=== PATIENT | female | born 1960 | race African-American/Black ===

== ENCOUNTER 2018-02-11 22:00 | Inpatient (IN) | payer MEDICAID, SELFPAY ==
[2018-02-11 22:01] VITALS: BP 125/90; PULSE 77; RESP 18; TEMP 36.6; O2SAT 99; BMI 21.7
--- NOTE | 2018-02-11 22:54 | EKG12_ITS ---
Test Reason : ABD PAIN Blood Pressure : / mmHG Vent. Rate : 069 BPM Atrial Rate : 069 BPM P-R Int : 138 ms QRS Dur : 076 ms QT Int : 502 ms P-R-T Axes : 085 054 075 degrees QTc Int : 537 ms Normal sinus rhythm Prolonged QT Abnormal ECG Confirmed by KARINA REYES, HENRRY ([id number]), business editor GEO OLIVO ([id number] on 02/13/2018 1:58:09 PM Referred By: RAMON Confirmed By:HENRRY COLLINS MD
--- NOTE | 2018-02-11 22:54 | RAD_ITS ---
STUDY: X-RAY CHEST REASON FOR EXAM: Female, 57 years old. Short of breath. Abdominal pain. TECHNIQUE: Portable upright. COMPARISON: None. FINDINGS: The lungs are clear and expanded. There is no demonstrated pleural abnormality. Normal size heart. Normal mediastinum and eliecer. Normal visualized pulmonary arteries. Normal visualized aortic arch and descending thoracic aorta. Normal visualized thoracic spine. Normal visualized ribs, clavicles, and shoulders. There is mild free air beneath the right hemidiaphragm. RAD/Chest 1 View (Portable) IMPRESSION: 1. Pneumoperitoneum. 2. Unremarkable chest. N.B. : The above information has been verbally conveyed by Lidia Gautam MD to Akbar He MD, on 02/11/2018 23:30:19 (ET). Electronically Signed: Lidia Gautam MD at 23:26 EDT Tel , Service support ,
[2018-02-11 23:33] LABS: Absolute Lymphocyte Count 0.67 X10^3/ul (0.83-4.51); Absolute Neutrophil Count 5.5 X10^3/uL (2.0-7.7); Basophil# 0.01 X10^3/uL; Basophil% 0.1 % (0-1); Hematocrit 43.5 % (37-47); Hemoglobin 15.2 g/dl (12.0-15.0); Lymphocyte # 0.67 X10^3/ul (4.0); Lymphocyte % 9.9 % (19-41); Mean Corp Hgb Conc 34.9 g/gl (32-36); Mean Corpuscular Volume 91.6 fL (81-99); Mean Platelet Vol. 11.1 fl (6.2-12.0); Monocyte# 0.53 X10^3/uL; Monocyte% 7.8 % (0-10); Neutrophil # 5.53 X10^3/uL (2.7-7.7); Neutrophil % 81.9 % (47-70); Platelet Count 264 K/mm3 (150-450); RBC Distribution Width CV 13.9 % (11.6-14.6); RBC Distribution Width SD 45.7 fl (35.1-43.9); Red Blood Count 4.75 M/mm3 (4.2-5.4); White Blood Count 6.8 K/mm3 (4.4-11.0)
--- NOTE | 2018-02-11 23:33 | CT_ITS ---
STUDY: CT ABDOMEN AND PELVIS WITHOUT CONTRAST REASON FOR EXAM: Female, 57 years old. Abdominal pain RADIATION DOSAGE (If Supplied By Facility): CTDIvol = ( 6.05 ) mGy, DLP = ( 278.03 ) mGycm TECHNIQUE: Transaxial images were obtained from the dome of the diaphragm to the symphysis pubis without oral contrast, and without intravenous contrast. Sagittal and coronal images were reconstructed. Individualized dose optimization techniques were used for this CT. COMPARISON: None. FINDINGS: The lung bases are clear. The liver is normal. No dilated intrahepatic biliary radicles. The gallbladder is normal with no calcifications within it. There is no pericholecystic fluid collection or streakiness The spleen is normal. The pancreas is normal. Both adrenals are normal. The kidneys are normal with no masses, calculi or hydronephrosis The stomach is normal. There is no bowel distention, acute appendicitis or diverticulitis. No constricting lesions are seen in large bowel. The abdominal wall is intact with no hernias. A small amount of free fluid is seen around the liver. There is free intraperitoneal air located around the liver, in the gallbladder fossa and in Morison's pouch. The vascular structures in the retroperitoneum are normal. There is no retrocrural, retroperitoneal or mesenteric adenopathy. The bones and joints are normal. The urinary bladder is normal.--The uterus is normal. There is a large amount of free fluid in the cul-de-sac. There is no inguinal or pelvic adenopathy. There is no inguinal hernia. . CT/Abdomen/Pelvis without Cont IMPRESSION: Free intraperitoneal air probably secondary to gastric perforation with a large amount of free fluid in the cul-de-sac. A small amount of free fluid is seen around the liver. The perforation may also originate from the hepatic flexure. N.B. : The above information has been verbally conveyed by Jan Lentz MD to Akbar He MD, on 02/12/2018 02:35:30 (ET). Electronically Signed: Jan Lentz MD at 1:28 EDT Tel , Service support ,
[2018-02-11] MEDS: proMETHazine 25 MG/ML Syringe 12.5 MG IV (23:35)
[2018-02-11] MEDS: 0.9% Normal Saline 1,000 ML 999 ML IV (23:35)
[2018-02-11 23:38] LABS: POSITIVE COUNT NO; POSITIVE DIFFERENTIAL NO; POSITIVE MORPHOLOGY NO
[2018-02-11] MEDS: Morphine 4 MG/ML Syringe IV (23:39)
[2018-02-12] VITALS (20 sets, daily range): BP systolic 129–174; BP diastolic 69–97; PULSE 52–91; RESP 16–18; TEMP 36.1–37.2; O2SAT 93–100; BMI 18.4
[2018-02-12 00:11] LABS: ALB/GLOB Ratio 1.1 RATIO (0.9-2.4); AST(SGOT) 27 U/L (15-37); Alanine Aminotransfer ALT/SGPT 39 U/L (13-56); Albumin, Serum 4.2 g/dL (3.2-5.0); Alkaline Phosphatase 55 U/L (45-117); Anion Gap 12 (5-15); BUN 21 mg/dL (7-18); BUN/Creat Ratio 16.5 RATIO (10-20); Calcium,Total 9.3 mg/dL (8.5-10.1); Chloride 102 mmol/L (98-107); Creatinine, Serum 1.27 mg/dL (0.55-1.02); EST Glomerular Filtration Rate 46 mL/min (>60); Est Glom Filt Rate - Afr Amer 56 mL/min (>60); Estimated Creatinine Clearance 37.32 ml/min; Globulin 3.8 g/dL (2.2-4.2); Glucose 98 mg/dL (74-106); Lipase 187 U/L (73-393); Potassium 3.7 mmol/L (3.5-5.1); Sodium Level 135 mmol/L (136-145)
[2018-02-12] MEDS: HYDROmorphone 1 MG/ML Syringe IV ×3 (00:27→21:11)
[2018-02-12 00:57] LABS: Bacteria 0 SEEN /hpf (None Seen); Red Blood Cells-Urine 0 SEEN /hpf (0-5)
[2018-02-12 00:59] LABS: Color, Urine Yellow (Yellow); Glucose, Dipstick Normal (Normal); Ketone-Dipstick 50 mg/dl (Negative); Leukocyte Esterase-Dipstick 100 /ul (Negative); Nitrite-Dipstick Negative (Negative); Occult Blood-Urine 25 /ul (Negative); Protein-Dipstick 100 mg/dl (Negative); Specific Gravity, Urine 1.025 (1.002-1.030); Urine Clarity Sl. Cloudy (Clear); Urine Urobilinogen Normal (Normal)
[2018-02-12 01:00] LABS: Urine Bilirubin Dipstick 1 mg/dL (Negative)
[2018-02-12 01:03] LABS: Hyaline Cast 25-50 SEEN /lpf (0-5); Squamous Epithelial Cells - UA 10-25 SEEN /hpf (5-10)
[2018-02-12 01:04] LABS: Mucous, Urine 2+ /hpf (<or=2+); White Blood Cells 5-10 SEEN /hpf (0-5)
--- NOTE | 2018-02-12 01:14 | ED.RN ---
notified Dr. He of lactic 3.0
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
[2018-02-12] MEDS: 0.9% Normal Saline 1,000 ML 999 ML IV (02:41)
[2018-02-12 02:43] LABS: Amphetamine Urine VISTA NEGATIVE (<1000 ng/mL); Barbiturate Urine VISTA NEGATIVE (< 200 ng/mL); Benzodiazepine Urine VISTA NEGATIVE (< 200 ng/mL); Cocaine Urine VISTA NEGATIVE (< 300 ng/mL); Ecstacy Urine VISTA NEGATIVE (< 500 ng/mL); Methadone Urine VISTA NEGATIVE (< 300 ng/mL); PCP Urine VISTA NEGATIVE (< 25 ng/mL); THC Urine VISTA POSITIVE (< 50 ng/mL); Vista UDS pH Range 6
[2018-02-12] MEDS: 0.9% Normal Saline 1,000 ML 125 ML IV ×2 (03:43→10:57)
[2018-02-12 04:45] LABS: Reflex Lactate? Y
--- NOTE | 2018-02-12 05:02 | RAD_ITS ---
STUDY: GASTROGRAFIN UPPER GI SERIES. REASON FOR EXAM: Female, 57 years old. History of of free intra-abdominal air. FLUOROSCOPY TIME (if supplied): (2:51) minutes/seconds. 26 spot images were obtained. TECHNIQUE: A violin mechanic film was obtained. Following this, the patient ingested Gastrografin. Imaging was performed. The study is limited. The patient would not ingest enough Gastrografin for the examination. COMPARISON: None. FINDINGS: The esophagus is unremarkable. There is gaseous distention of the stomach. There is diffuse narrowing and the mucosal thickening of the distal portion of the stomach and antrum. There is evidence of extraluminal extravasation of the Gastrografin in the region of the duodenal bulb. RAD/Upper GI w/BA Swallow IMPRESSION: Narrowing and edematous changes of the distal stomach and first portion of the duodenum. I suspect a leak in the region of the first portion of the duodenum. Electronically Signed: Herrera Donohue MD at 9:40 EDT Tel [phone], Service support ,
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
[2018-02-12 05:41] LABS: Absolute Lymphocyte Count 0.77 X10^3/ul (0.83-4.51); Absolute Neutrophil Count 4.9 X10^3/uL (2.0-7.7); Basophil# 0.01 X10^3/uL; Basophil% 0.2 % (0-1); Eosinophil# 0.03 X10^3/uL; Eosinophils% 0.5 % (0-5); Hematocrit 38.7 % (37-47); Hemoglobin 12.6 g/dl (12.0-15.0); Lymphocyte # 0.77 X10^3/ul (4.0); Mean Corp Hgb Conc 32.6 g/gl (32-36); Mean Corpuscular Volume 95.3 fL (81-99); Mean Platelet Vol. 11.3 fl (6.2-12.0); Monocyte# 0.26 X10^3/uL; Monocyte% 4.4 % (0-10); Neutrophil # 4.87 X10^3/uL (2.7-7.7); Neutrophil % 81.9 % (47-70); POSITIVE COUNT NO; POSITIVE DIFFERENTIAL NO; POSITIVE MORPHOLOGY NO; Platelet Count 207 K/mm3 (150-450); RBC Distribution Width CV 14.4 % (11.6-14.6); RBC Distribution Width SD 50.1 fl (35.1-43.9); Red Blood Count 4.06 M/mm3 (4.2-5.4); White Blood Count 5.9 K/mm3 (4.4-11.0)
[2018-02-12 06:00] LABS: Anion Gap 12 (5-15); BUN 20 mg/dL (7-18); BUN/Creat Ratio 20.8 RATIO (10-20); Calcium,Total 7.8 mg/dL (8.5-10.1); Chloride 112 mmol/L (98-107); Creatinine, Serum 0.96 mg/dL (0.55-1.02); EST Glomerular Filtration Rate 64 mL/min (>60); Est Glom Filt Rate - Afr Amer 77 mL/min (>60); Estimated Creatinine Clearance 47.21 ml/min; Glucose 104 mg/dL (74-106); Potassium 3.7 mmol/L (3.5-5.1); Sodium Level 139 mmol/L (136-145)
--- NOTE | 2018-02-12 11:05 | CASEMGMT ---
Face to Face with patient for initial transition planning/care coordination assessment. YAIMA COOL introduced self and role at [facility], pt voices understanding and consents to assessment at this time. Pt is sitting up in bed in no distress at this time. Pt is A/O x4 at this time and answers all questions appropriately at this time. Care providers, pharmacy, and demographics verified. See attached link. Pt provided with PCP list at this time and information regarding [facility] van service at this time, voices understanding. Pt also provided with Advanced directive info as well as Social Service pamphlet at this time, voices understanding. Pt declines to complete AD info at this time but is aware that [facility] provides that service, voices understanding. Pt voices no further concerns/needs at this time. Advised pt to ask for CM if any further questions/concerns/needs arise, voices understanding. PLAN[place] YAIMA COOL
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
[2018-02-12] MEDS: Bupivacaine Mpf 0.5% 30 ML VIAL (15:46)
--- NOTE | 2018-02-12 16:00 | OP.PCM_ITS ---
Problem List (1) Duodenal ulcer perforation Status: Acute Report of Operation Date of Procedure: 02/12/18 Pre-Operative Diagnosis: Duodenal ulcer perforation Post-Operative Diagnosis: Same plus umbilical hernia Surgery/Procedure Performed:: Laparoscopic exploration with irrigation. Laparoscopic repair of perforated duodenal ulcer with Chris patch. Umbilical herniorrhaphy Description of Surgical Findings:: Timeout and informed consent was obtained. 57-year-old female was taken out from placement table underwent general ventricular-based anesthesia. NG tube was placed. Cefotetan 2 g are given intravenously. The abdomen sterilely prepped and draped. 0.5% Marcaine was used as local anesthetic. At the procedure total 30 cc was used. Skin sites were pre-anesthetized. A vertical infraumbilical incision was created. Holding sutures of 0 Vicryl placed. Small umbilical hernia was identified and upon opening that hernia sac intraperitoneal air escape. There is no odor. Tunneling trocar was inserted. Abdomen is inspected there was bilious material this was aspirated and sent for culture. There were adhesions mostly involving the anterior surface of the ascending col on and transverse colon as well as the anterior wall of the stomach and duodenum. There is standing involving the surfaces of the liver. Blunt dissection was used to explore this area and irrigated and aspirated free. Upon so doing a perforated duodenal ulcer was encountered. I utilized a number 2V lock suture a polyglactin suture and in a running technique approximated the ulcer. I did not take of the rim of the ulcer cavity appeared to be clean and not malignant and as this was a laparoscopic approach I wanted to assure a good chance at closure. I then used a portion of the gastrocolic omentum place that up over the repaired area and I secured that in place with another 20V lock. I felt that I had good approximation of the omental patch overlying the repair. There is been very minimal blood loss. I copiously irrigated the abdomen. I then placed a 15 round BETZY drain beneath the left lobe of the liver up in the left upper quadrant through the right subhepatic space. Secured that to the skin with interrupted 3-0 nylon the abdomen was allowed to deflate CO2. The umbilical hernia site was closed with simple and figure 8 sutures of 0 Nurolon. Skin edges were extended up to 4 Monocryl sub-dermal stitches. Steri-Strips Telfa and OpSite dressings applied. Sponge and instrument and needle counts were reported the surgical correct. Blood loss minimal. Specimens simply include peritoneal flow fluid for culture. Drains a 15 round BETZY drain to the upper abdomen. Blood loss minimal. Rivas Jade M.D., F.A.C.S. Type of Anesthesia:: General Anesthesiologist: Michael Culp
--- NOTE | 2018-02-12 20:39 | NURSING ---
Pt ambulated to chair. Pt tolerated very well, stating she feels great.
[2018-02-13] VITALS (12 sets, daily range): BP systolic 134–169; BP diastolic 71–81; PULSE 70–92; RESP 12–16; TEMP 36.4–37.2; O2SAT 97–100
[2018-02-13] MEDS: HYDROmorphone 1 MG/ML Syringe IV ×4 (01:42→20:18)
[2018-02-13] MEDS: 0.9% NaCl Peripheral Flush Adult/Peds IV ×4 (01:43→20:18)
--- NOTE | 2018-02-13 05:16 | PN.SURG_ITS ---
Patient Problems: Active and Suspected Problems Adverse effect of ibuprofen (Acute) RAFA (acute kidney injury) (Acute) Duodenal ulcer perforation (Acute) Subjective: Pt feels much better than yesterday - Physical Exam Lungs: Clear to auscultation Abdomen: Soft, Non Tender, - - occ bs NGT bilious approx 400cc Vital Signs Temp Pulse Resp BP Pulse Ox 97.7 F L 75 16 135/80 H 97 02/13/18 01:32 02/13/18 03:02 02/13/18 01:32 02/13/18 01:32 02/13/18 01:32 Oxygen Delivery Method Room Air Weight: 100 lb 12.02 oz Body Mass Index (BMI) 18.4 Intake and Output for Last 24 Hours 02/11/18 02/12/18 02/13/18 23:59 23:59 23:59 Intake Total 3692 / 3692 Output Total 110 / 110 60 / 60 Balance 3582 / 3582 -60 / -60 Laboratory Tests Past 24 Hrs 02/12/18 02/12/18 02/12/18 05:08 05:08 05:08 WBC 5.9 RBC 4.06 L Hgb 12.6 Hct 38.7 MCV 95.3 MCH 31.0 MCHC 32.6 RDW 14.4 RDW Differential 50.1 H Plt Count 207 MPV 11.3 Immature Gran % (Auto) 0.000 Neut % (Auto) 81.9 H Lymph % (Auto) 13.0 L [place] % (Auto) 4.4 Eos % (Auto) 0.5 Baso % (Auto) 0.2 Absolute Neuts (auto) 4.9 Absolute Lymphs (auto) 0.77 L Total Counted Not Reportable Sodium 139 Potassium 3.7 Chloride 112 H Carbon Dioxide 15.0 L Anion Gap 12 BUN 20 H Creatinine 0.96 Estim Creat Clear Calc 47.21 Est GFR (MDRD) Af Amer 77 Est GFR (MDRD) Non-Af 64 BUN/Creatinine Ratio 20.8 H Glucose 104 Lactic Acid 1.0 Calcium 7.8 L Blood Type Antibody Screen 02/12/18 11:45 WBC RBC Hgb Hct MCV MCH MCHC RDW RDW Differential Plt Count MPV Immature Gran % (Auto) Neut % (Auto) Lymph % (Auto) [place] % (Auto) Eos % (Auto) Baso % (Auto) Absolute Neuts (auto) Absolute Lymphs (auto) Total Counted Sodium Potassium Chloride Carbon Dioxide Anion Gap BUN Creatinine Estim Creat Clear Calc Est GFR (MDRD) Af Amer Est GFR (MDRD) Non-Af BUN/Creatinine Ratio Glucose Lactic Acid Calcium Blood Type O POSITIVE Antibody Screen NEGATIVE Medical Necessity - Tobacco Use Smoking Status: Current every day smoker Tobacco Use: Cigarettes Assessment/Plan All Active Problems Adverse effect of ibuprofen (Acute) RAFA (acute kidney injury) (Acute) Duodenal ulcer perforation (Acute) BETZY sersosanguinous, quite unremarkable NGT bilious Will re assess later today for possible ngt removal Good progress
[2018-02-13 05:40] LABS: Absolute Lymphocyte Count 0.78 X10^3/ul (0.83-4.51); Absolute Neutrophil Count 7.6 X10^3/uL (2.0-7.7); Basophil# 0.01 X10^3/uL; Basophil% 0.1 % (0-1); Hematocrit 34.7 % (37-47); Hemoglobin 11.6 g/dl (12.0-15.0); Lymphocyte # 0.78 X10^3/ul (4.0); Lymphocyte % 8.7 % (19-41); Mean Corp Hgb Conc 33.4 g/gl (32-36); Mean Corpuscular Hgb 30.9 pg (27.0-32.0); Mean Corpuscular Volume 92.5 fL (81-99); Mean Platelet Vol. 10.9 fl (6.2-12.0); Monocyte# 0.46 X10^3/uL; Monocyte% 5.1 % (0-10); Neutrophil # 7.62 X10^3/uL (2.7-7.7); Neutrophil % 85.2 % (47-70); Platelet Count 197 K/mm3 (150-450); RBC Distribution Width CV 14.6 % (11.6-14.6); RBC Distribution Width SD 49.4 fl (35.1-43.9); Red Blood Count 3.75 M/mm3 (4.2-5.4)
[2018-02-13 05:41] LABS: Differential Indicated SCAN CRITERIA MET; POSITIVE COUNT NO; POSITIVE DIFFERENTIAL NO; POSITIVE MORPHOLOGY YES
[2018-02-13 06:00] LABS: Anion Gap 10 (5-15); BUN 26 mg/dL (7-18); BUN/Creat Ratio 17.3 RATIO (10-20); Calcium,Total 7.8 mg/dL (8.5-10.1); Chloride 115 mmol/L (98-107); EST Glomerular Filtration Rate 38 mL/min (>60); Est Glom Filt Rate - Afr Amer 46 mL/min (>60); Estimated Creatinine Clearance 30.21 ml/min; Glucose 90 mg/dL (74-106); Sodium Level 142 mmol/L (136-145)
[2018-02-13] MEDS: Lactated Ringers 1,000 ML 50 ML IV (06:26)
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
[2018-02-13] MEDS: Lactated Ringers 1,000 ML 125 ML IV (16:47)
[2018-02-14] VITALS (16 sets, daily range): BP systolic 169–197; BP diastolic 84–101; PULSE 76–89; RESP 16–18; TEMP 36.6–37.5; O2SAT 98–100
[2018-02-14] MEDS: Lactated Ringers 1,000 ML 125 ML IV (01:03)
[2018-02-14] MEDS: 0.9% NaCl Peripheral Flush Adult/Peds IV ×3 (01:32→18:23)
[2018-02-14] MEDS: HYDROmorphone 1 MG/ML Syringe IV (01:32)
--- NOTE | 2018-02-14 05:50 | PCM.PN.SRG ---
Patient Problems: Active and Suspected Problems Adverse effect of ibuprofen (Acute) RAFA (acute kidney injury) (Acute) Duodenal ulcer perforation (Acute) - Physical Exam General: Alert, Oriented x3, Cooperative, No apparent distress Lungs: Clear to auscultation Abdomen: Bowel Sounds Present, Soft, Non Tender, - - vita serosanguinous Vital Signs Temp Pulse Resp BP Pulse Ox 99.0 F 86 16 169/84 H 98 02/14/18 02:31 02/14/18 03:00 02/14/18 02:31 02/14/18 02:31 02/14/18 02:31 Oxygen Delivery Method Room Air Weight: 100 lb 12.02 oz Body Mass Index (BMI) 18.4 Intake and Output for Last 24 Hours 02/12/18 02/13/18 02/14/18 23:59 23:59 23:59 Intake Total 3692 / 3692 2313.8 / 2313.8 821 / 821 Output Total 210 / 210 1395 / 1395 330 / 330 Balance 3482 / 3482 918.8 / 918.8 491 / 491 Microbiology Past 72 Hours 02/12/18 15:00 Gram Stain - Final Aspirate - Other Wound Culture - Preliminary No growth-Final to follow Laboratory Tests Past 24 Hrs 02/13/18 02/13/18 05:16 05:16 Total Counted Not Reportable Sodium 142 Potassium 4.0 Chloride 115 H Carbon Dioxide 17.0 L Anion Gap 10 BUN 26 H Creatinine 1.50 H Estim Creat Clear Calc 30.21 Est GFR (MDRD) Af Amer 46 L Est GFR (MDRD) Non-Af 38 L BUN/Creatinine Ratio 17.3 Glucose 90 Calcium 7.8 L Medical Necessity - Tobacco Use Smoking Status: Current every day smoker Tobacco Use: Cigarettes Assessment/Plan All Active Problems Adverse effect of ibuprofen (Acute) RAFA (acute kidney injury) (Acute) Duodenal ulcer perforation (Acute) NGT removed VITA removed Start clears Trim IVF but labs still pending Hopeful discharge tomorrow
--- NOTE | 2018-02-14 05:54 | DCINST_ITS ---
Discharge Diet: Light diet - advance as tolerated, - - No alcohol No aspirin or ibuprofen Discharge Activity: May Not Drive - May drive in 4 days, May Shower Lifting Restrictions: 10 pounds Call your doctor if your incision/area has: Continuous Slow Oozing, Sudden Increased Bleeding, Increased Pain/ Swelling, Increased Redness, Foul Smelling Discharge Call your doctor if you observe: Fever of 101 or Higher Suture Line Care: Avoid Pulling/Pushing, Avoid Pinching/Bending Additional Dressing/Incision Instructions:: You may remove the drain tape dressing Friday and shower. Remove the plastic dressings on Friday and then leave the steri strips for one week Allergies/Adverse Reactions: Allergies No Known Allergies Allergy (Verified 02/11/18 22:02) Medications to take at Discharge Aspirin [Aspirin, Baby] 81 mg PO DAILY@0800 02/12/18 Ibuprofen 800 mg PO BID 02/12/18 Primary Care Physician: Care Physician,No Primary [Primary Care Provider] - Test Results: Test results from this visit will be discussed in further detail at your follow- up appointment, if applicable. Please Follow Up With: Rivas Jade MD - [phone] When: Call to make an appointment to be seen in about 7 days.
[2018-02-14 06:35] LABS: Hematocrit 27.7 % (37-47); Hemoglobin 9.4 g/dl (12.0-15.0); Mean Corp Hgb Conc 33.9 g/gl (32-36); Mean Corpuscular Hgb 31.4 pg (27.0-32.0); Mean Corpuscular Volume 92.6 fL (81-99); Mean Platelet Vol. 12.2 fl (6.2-12.0); Platelet Count 184 K/mm3 (150-450); RBC Distribution Width CV 14.6 % (11.6-14.6); RBC Distribution Width SD 47.1 fl (35.1-43.9); Red Blood Count 2.99 M/mm3 (4.2-5.4)
[2018-02-14 06:42] LABS: Anion Gap 11 (5-15); BUN 19 mg/dL (7-18); BUN/Creat Ratio 20.5 RATIO (10-20); Calcium,Total 8.2 mg/dL (8.5-10.1); Chloride 112 mmol/L (98-107); Creatinine, Serum 0.93 mg/dL (0.55-1.02); EST Glomerular Filtration Rate 66 mL/min (>60); Est Glom Filt Rate - Afr Amer 80 mL/min (>60); Estimated Creatinine Clearance 48.73 ml/min; Glucose 61 mg/dL (74-106); Potassium 3.4 mmol/L (3.5-5.1); Sodium Level 142 mmol/L (136-145)
[2018-02-14 06:44] LABS: Scan Indicated on CBC? Y/N NO
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
[2018-02-14] MEDS: Lactated Ringers 1,000 ML 50 ML IV (12:46)
[2018-02-14] MEDS: amLODIPine 10 MG Tablet PO (12:52)
--- NOTE | 2018-02-14 15:18 | NURSING ---
Pt walked the whole unit w/standby assist.
[2018-02-14] MEDS: Piperacil/Tazobactam 3.375 GM/50 ML ML IV ×2 (18:23→23:20)
[2018-02-14] MEDS: Acetaminophen 325 MG Tablet PO (18:43)
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
[2018-02-14] MEDS: hydroCHLOROthiazide 25 MG Tablet PO (22:27)
[2018-02-15] VITALS (14 sets, daily range): BP systolic 151–185; BP diastolic 85–110; PULSE 70–93; RESP 16–18; TEMP 36.7–37.2; O2SAT 98–100
[2018-02-15] MEDS: 0.9% NaCl Peripheral Flush Adult/Peds IV ×3 (02:44→13:53)
--- NOTE | 2018-02-15 03:32 | NURSING ---
PATIENT IS GETTING AGITATED AND WANTS TO GO HOME, STATES, CAN'T STAY HERE ANOTHER NIGHT, IT HAS BEEN 5 DAYS, I'M DONE.
[2018-02-15] MEDS: Piperacil/Tazobactam 3.375 GM/50 ML ML IV ×3 (05:36→21:27)
[2018-02-15 06:01] LABS: Absolute Lymphocyte Count 0.91 X10^3/ul (0.83-4.51); Absolute Neutrophil Count 12.1 X10^3/uL (2.0-7.7); Basophil# 0.02 X10^3/uL; Basophil% 0.1 % (0-1); Eosinophil# 0.09 X10^3/uL; Eosinophils% 0.7 % (0-5); Hematocrit 34.3 % (37-47); Hemoglobin 11.8 g/dl (12.0-15.0); Lymphocyte # 0.91 X10^3/ul (4.0); Lymphocyte % 6.6 % (19-41); Mean Corp Hgb Conc 34.4 g/gl (32-36); Mean Corpuscular Hgb 30.9 pg (27.0-32.0); Mean Corpuscular Volume 89.8 fL (81-99); Mean Platelet Vol. 11.1 fl (6.2-12.0); Monocyte# 0.61 X10^3/uL; Monocyte% 4.4 % (0-10); Neutrophil # 12.14 X10^3/uL (2.7-7.7); Neutrophil % 87.8 % (47-70); Platelet Count 235 K/mm3 (150-450); RBC Distribution Width CV 14.4 % (11.6-14.6); RBC Distribution Width SD 45.9 fl (35.1-43.9); Red Blood Count 3.82 M/mm3 (4.2-5.4); White Blood Count 13.8 K/mm3 (4.4-11.0)
[2018-02-15 06:07] LABS: POSITIVE COUNT NO; POSITIVE DIFFERENTIAL NO; POSITIVE MORPHOLOGY NO
[2018-02-15 06:08] LABS: Anion Gap 14 (5-15); BUN 9 mg/dL (7-18); BUN/Creat Ratio 13.4 RATIO (10-20); Chloride 102 mmol/L (98-107); Creatinine, Serum 0.67 mg/dL (0.55-1.02); EST Glomerular Filtration Rate 96 mL/min (>60); Est Glom Filt Rate - Afr Amer 116 mL/min (>60); Estimated Creatinine Clearance 67.64 ml/min; Glucose 92 mg/dL (74-106); Potassium 3.1 mmol/L (3.5-5.1); Sodium Level 138 mmol/L (136-145)
--- NOTE | 2018-02-15 07:54 | NURSING ---
DR OCAMPO IN TO SEE PATIENT. PATIENT UPSET THAT SHE WILL NOT BE GOING HOME TODAY. DR OCAMPO EXPLAINING TO PATIENT WHY SHE CANNOT GO HOME TODAY. EMOTIONAL SUPPORT GIVEN
--- NOTE | 2018-02-15 08:07 | PN.SURG_ITS ---
Patient Problems: Active and Suspected Problems Adverse effect of ibuprofen (Acute) RAFA (acute kidney injury) (Acute) Duodenal ulcer perforation (Acute) Subjective: Patient tolerating full liquids, denies any abdominal pain, passing flatus, white blood cell count increased to 13.8 from 12 Zosyn started yesterday, patient upset about not being able to go home today - Physical Exam General: Alert, Oriented x3, Cooperative, No apparent distress HEENT: Atraumatic Lungs: Normal air movement Cardiovascular: Regular rate Abdomen: Soft, Non Tender, Passing Flatus, Distended - Mild to moderate, - - Incisions clean dry and intact dressed, previous BETZY site healing well Extremities: No clubbing, No cyanosis, No edema Vital Signs Temp Pulse Resp BP Pulse Ox 98.1 F 85 16 168/109 H 98 02/15/18 07:51 02/15/18 07:51 02/15/18 07:51 02/15/18 07:51 02/15/18 07:51 Oxygen Delivery Method Room Air Weight: 100 lb 12.02 oz Body Mass Index (BMI) 18.4 Intake and Output for Last 24 Hours 02/13/18 02/14/18 02/15/18 23:59 23:59 23:59 Intake Total 2313.8 / 2313.8 2846 / 2846 313 / 313 Output Total 1395 / 1395 630 / 630 Balance 918.8 / 918.8 2216 / 2216 313 / 313 Microbiology Past 72 Hours 02/12/18 15:00 Gram Stain - Final Aspirate - Other Wound Culture - Preliminary Alpha Hemolytic Streptococcus Anaerobic Culture - Preliminary Checking for anaerobes, further studies to follow. Laboratory Tests Past 24 Hrs 02/15/18 02/15/18 05:28 05:28 WBC 13.8 H RBC 3.82 L Hgb 11.8 L Hct 34.3 L MCV 89.8 MCH 30.9 MCHC 34.4 RDW 14.4 RDW Differential 45.9 H Plt Count 235 MPV 11.1 Immature Gran % (Auto) 0.400 Neut % (Auto) 87.8 H Lymph % (Auto) 6.6 L [place] % (Auto) 4.4 Eos % (Auto) 0.7 Baso % (Auto) 0.1 Absolute Neuts (auto) 12.1 H Absolute Lymphs (auto) 0.91 Total Counted Not Reportable Sodium 138 Potassium 3.1 L Chloride 102 Carbon Dioxide 22.0 Anion Gap 14 BUN 9 Creatinine 0.67 Estim Creat Clear Calc 67.64 Est GFR (MDRD) Af Amer 116 Est GFR (MDRD) Non-Af 96 BUN/Creatinine Ratio 13.4 Glucose 92 Calcium 9.0 Medical Necessity - Tobacco Use Smoking Status: Current every day smoker Tobacco Use: Cigarettes Assessment/Plan All Active Problems Adverse effect of ibuprofen (Acute) RAFA (acute kidney injury) (Acute) Duodenal ulcer perforation (Acute) Continue full liquid diet. Leukocytosis?increased continue Zosyn IV, cultures growing alpha hemolytic strep, also added Diflucan due to perforated duodenal ulcer Hypokalemia, replace Mimi Angel M.D. Pager: [phone] [facility] [address] [place] [address], [facility], [address] [place] [address] Office: [phone]
[2018-02-15] MEDS: Lactated Ringers 1,000 ML 75 ML IV (10:34)
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
[2018-02-15] MEDS: amLODIPine 10 MG Tablet PO (11:25)
[2018-02-15] MEDS: HYDROmorphone 1 MG/ML Syringe IV (13:15)
[2018-02-15] MEDS: hydrALAZINE 20 MG/ML Vial 5 MG IV ×2 (13:53→20:34)
--- NOTE | 2018-02-15 15:00 | NURSING ---
Discussed with pt about the possibility of getting a midline or second IV placed d/t multiple IV meds. pt refusing second IV or midline at this time.
[2018-02-15] MEDS: Acetaminophen 325 MG Tablet PO (20:33)
[2018-02-16] VITALS (12 sets, daily range): BP systolic 150–156; BP diastolic 85–93; PULSE 78–107; RESP 16–18; TEMP 36.8–37.2; O2SAT 96–100
--- NOTE | 2018-02-16 02:00 | NURSING ---
Pt given oral contact
[2018-02-16] MEDS: Ondansetron 4 MG/2 ML Vial IV (02:55)
[2018-02-16] MEDS: Lactated Ringers 1,000 ML 75 ML IV (02:56)
[2018-02-16] MEDS: proMETHazine 25 MG/ML Syringe 12.5 MG IV (03:24)
[2018-02-16] MEDS: 0.9% NaCl Peripheral Flush Adult/Peds IV (03:27)
--- NOTE | 2018-02-16 03:35 | NURSING ---
Pt had light green emesis while drinking oral contract for CT. Was unable to measure emesis d/t being on gown and sheet. Pt still ok to have CT at scheduled time, per Radiology.
--- NOTE | 2018-02-16 04:00 | CT_ITS ---
STUDY: CT ABDOMEN AND PELVIS WITHOUT CONTRAST REASON FOR EXAM: Female, 57 years old. Emesis yesterday. Patient has gastric perforation due to pain killer use. Status post duodenal ulcer repair and umbilical hernia repair 02/12/2018. RADIATION DOSAGE (If Supplied By Facility): CTDIvol = ( 6.08 ) mGy, DLP = ( 289.96 ) mGycm TECHNIQUE: Transaxial images were obtained from the dome of the diaphragm to the symphysis pubis with oral contrast, and without intravenous contrast. Sagittal and coronal images were reconstructed. Oral contrast opacification is limited. Individualized dose optimization techniques were used for this CT. COMPARISON: CT scan of 02/11/2018. FINDINGS: There are small bilateral pleural effusions with overlying atelectasis in the visualized posterior lung bases bilaterally, not present on previous exam. The visualized portions of the heart are within normal limits. There is free intraperitoneal air, which may represent residuum from recent surgery and/or recently perforated peptic ulcer. There is mild abdominal pelvic ascites, similar to previous study. There is diffuse infiltration of abdominal and pelvic fat, including retroperitoneal fat, which may be due to fluid overload or anasarca.. Normal liver. Normal gallbladder and extrahepatic biliary system. Normal spleen. Normal pancreas. Normal bilateral adrenal glands. Normal right kidney. Normal left kidney. There is mural thickening in the distal body and antrum of the stomach, which was also present on previous exam. There is air or fluid distention of multiple loops of jejunum and ileum, with diameters ranging up to 3.8 cm. Oral contrast has progressed to the level of the proximal ileum. There is no demonstrated decompression of distal small bowel loops or the right hemicolon to suggest mechanical obstruction. These findings probably represent a partial ileus.. Grossly normal appearing colon. Assessment of portions of the left hemicolon is limited by nondistention. The appendix is visualized medial to the cecum on axial images 112-120 and it appears normal.. There is mild atherosclerotic calcification of the abdominal aorta, without a demonstrated aneurysm. Normal inferior vena cava. There is no demonstrated retroperitoneal lymphadenopathy. Normal urinary bladder. The uterus has irregular contours, suggesting lymphomatous uterus. Normal abdominal wall. There are mild degenerative changes of the visualized lumbar spine. CT/Abdomen/Pel W ORAL Cont Only IMPRESSION: New finding of small bilateral pleural effusions with overlying atelectasis and/or infiltration in the visualized lung bases. Persistent mild ascites as well as free intraperitoneal air, which may be related to recent surgery and/or recent perforated peptic ulcer. Persistent mural thickening of the distal body and antrum of the stomach. Increased infiltration of the intra-abdominal fat and subcutaneous fat, which may be due to fluid overload or anasarca. Distention of bowel loops, probably representing a partial ileus. No evidence for significant mechanical obstruction. Suggestion of leiomyomatous uterus. Atherosclerosis. Electronically Signed: Mundo Rogers MD at 4:31 EDT , Service support ,
[2018-02-16] MEDS: Piperacil/Tazobactam 3.375 GM/50 ML ML IV ×3 (05:32→20:56)
--- NOTE | 2018-02-16 06:14 | PCM.PN.SRG ---
Patient Problems: Active and Suspected Problems Adverse effect of ibuprofen (Acute) RAFA (acute kidney injury) (Acute) Duodenal ulcer perforation (Acute) Subjective: Pt very disappointed that she cant go home C/o nausea with the taking of oral contrast for CT Some flatus - Physical Exam General: Alert, Oriented x3, Cooperative, No apparent distress Lungs: - - diminished in bases Abdomen: Non Tender, Hypoactive Bowel Sounds, Tender Vital Signs Temp Pulse Resp BP Pulse Ox 98.2 F 89 16 156/85 H 100 02/16/18 02:34 02/16/18 04:00 02/16/18 02:34 02/16/18 02:34 02/16/18 02:34 Oxygen Delivery Method Room Air Weight: 100 lb 12.02 oz Body Mass Index (BMI) 18.4 Intake and Output for Last 24 Hours 02/14/18 02/15/18 02/16/18 23:59 23:59 23:59 Intake Total 2846 / 2846 1710 / 1710 475 / 475 Output Total 630 / 630 150 / 150 Balance 2216 / 2216 1710 / 1710 325 / 325 Microbiology Past 72 Hours 02/12/18 15:00 Gram Stain - Final Aspirate - Other Wound Culture - Preliminary Alpha Hemolytic Streptococcus Anaerobic Culture - Preliminary Checking for anaerobes, further studies to follow. Medical Necessity - Tobacco Use Smoking Status: Current every day smoker Tobacco Use: Cigarettes Assessment/Plan All Active Problems Adverse effect of ibuprofen (Acute) RAFA (acute kidney injury) (Acute) Duodenal ulcer perforation (Acute) Significant inflammation throughout the abdomen found at time of surgery. Findings c/w ileus, possible partial SBO, possible abscess Awaiting labs. If further leukocytosis then consider CT guided aspiration of pelvic ascites Plan for PICC line and TPN. This may take time for resolution If exploration ends up being required this will be an open operation b/o very small abdominal cavity, lack of viewing space, degree of bowel distention. Of course this would then worsen the current ileus as well Pt needs to mobilize and I have stressed pulmonary toilet
[2018-02-16] MEDS: Furosemide 20 MG/2 ML VIAL IV (06:42)
[2018-02-16 06:53] LABS: Absolute Lymphocyte Count 0.94 X10^3/ul (0.83-4.51); Absolute Neutrophil Count 10.2 X10^3/uL (2.0-7.7); Basophil# 0.01 X10^3/uL; Basophil% 0.1 % (0-1); Eosinophil# 0.02 X10^3/uL; Eosinophils% 0.2 % (0-5); Hematocrit 33.9 % (37-47); Hemoglobin 11.8 g/dl (12.0-15.0); Lymphocyte # 0.94 X10^3/ul (4.0); Lymphocyte % 7.6 % (19-41); Mean Corp Hgb Conc 34.8 g/gl (32-36); Mean Corpuscular Hgb 31.1 pg (27.0-32.0); Mean Corpuscular Volume 89.2 fL (81-99); Mean Platelet Vol. 11.8 fl (6.2-12.0); Monocyte% 9.7 % (0-10); Neutrophil # 10.16 X10^3/uL (2.7-7.7); Neutrophil % 81.7 % (47-70); Platelet Count 232 K/mm3 (150-450); RBC Distribution Width CV 14.6 % (11.6-14.6); RBC Distribution Width SD 46.8 fl (35.1-43.9); White Blood Count 12.4 K/mm3 (4.4-11.0)
[2018-02-16 07:00] LABS: Anion Gap 16 (5-15); BUN 8 mg/dL (7-18); BUN/Creat Ratio 13.6 RATIO (10-20); Calcium,Total 8.9 mg/dL (8.5-10.1); Chloride 100 mmol/L (98-107); Creatinine, Serum 0.59 mg/dL (0.55-1.02); EST Glomerular Filtration Rate 112 mL/min (>60); Est Glom Filt Rate - Afr Amer 136 mL/min (>60); Estimated Creatinine Clearance 76.81 ml/min; Glucose 78 mg/dL (74-106); Potassium 3.3 mmol/L (3.5-5.1); Sodium Level 137 mmol/L (136-145)
[2018-02-16 07:02] LABS: POSITIVE COUNT NO; POSITIVE DIFFERENTIAL NO; POSITIVE MORPHOLOGY NO
[2018-02-16] MEDS: amLODIPine 10 MG Tablet PO (08:17)
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
[2018-02-16 11:09] LABS: Magnesium 1.5 mg/dL (1.6-2.6)
--- NOTE | 2018-02-16 12:23 | PCM.PN.BLA ---
Progress Note CT scan results reviewed with patient. Discussed CT guided aspiration with Dr. Stephens this morning, who noted ascites in the pelvis would be difficult to aspirate. He noted the patient has bilateral lower lobe pneumonia. Patient was also told her potassium is low and will be replaced. Discussed patient with hospitalist. Medicine will place a PICC line and start TPN. Patient needs to be ambulating and using her I.S. Labs reviewed. Code Visit Inpatient E&M: 90431 Subs Hosp L1 - NO CHARGE; POST-OP
--- NOTE | 2018-02-16 12:35 | PN_ITS ---
Progress Note CT scan results reviewed with patient. Discussed CT guided aspiration with Dr. Stephens this morning, who noted ascites in the pelvis would be difficult to aspirate. He noted the patient has bilateral lower lobe pneumonia. Patient was also told her potassium is low and will be replaced. Discussed patient with hospitalist. Medicine will place a PICC line and start TPN. Patient needs to be ambulating and using her I.S. Labs reviewed. Code Visit Inpatient E&M: 98783 Subs Hosp L1 - NO CHARGE; POST-OP
[2018-02-16 13:22] LABS: M R Staph aureus DNA By PCR Negative (Negative); Probe Check PASS; Specimen Processing Control PASS
[2018-02-16] MEDS: Acetaminophen 325 MG Tablet PO (15:10)
--- NOTE | 2018-02-16 18:23 | NURSING ---
Walked halls with pt. Denies pain/nausea. Encouraged another walk this evening and I.S.
[2018-02-17] VITALS (7 sets, daily range): BP systolic 139–155; BP diastolic 78–99; PULSE 78–88; RESP 16–18; TEMP 36.8–37.1; O2SAT 97–100
[2018-02-17] MEDS: 0.9% NaCl Peripheral Flush Adult/Peds IV ×2 (04:29)
[2018-02-17 04:46] LABS: Hematocrit 31.6 % (37-47); Mean Corp Hgb Conc 34.8 g/gl (32-36); Mean Corpuscular Hgb 30.9 pg (27.0-32.0); Mean Corpuscular Volume 88.8 fL (81-99); Mean Platelet Vol. 10.8 fl (6.2-12.0); Platelet Count 220 K/mm3 (150-450); RBC Distribution Width CV 14.3 % (11.6-14.6); RBC Distribution Width SD 45.3 fl (35.1-43.9); Red Blood Count 3.56 M/mm3 (4.2-5.4)
[2018-02-17 04:54] LABS: Scan Indicated on CBC? Y/N NO
[2018-02-17 05:03] LABS: Anion Gap 9 (5-15); BUN 13 mg/dL (7-18); BUN/Creat Ratio 19.5 RATIO (10-20); Calcium,Total 8.3 mg/dL (8.5-10.1); Chloride 100 mmol/L (98-107); Creatinine, Serum 0.67 mg/dL (0.55-1.02); EST Glomerular Filtration Rate 97 mL/min (>60); Est Glom Filt Rate - Afr Amer 118 mL/min (>60); Estimated Creatinine Clearance 67.64 ml/min; Glucose 133 mg/dL (74-106); Sodium Level 138 mmol/L (136-145)
--- NOTE | 2018-02-17 05:25 | PCM.PN.SRG ---
Patient Problems: Active and Suspected Problems Adverse effect of ibuprofen (Acute) RAFA (acute kidney injury) (Acute) Duodenal ulcer perforation (Acute) Subjective: Pt denies nausea this a.m. Three walks yesterday Some flatus, no stool - Physical Exam Lungs: - - diminished in bases Abdomen: Soft, Non Tender, Hypoactive Bowel Sounds, Distended Vital Signs Temp Pulse Resp BP Pulse Ox 98.7 F 83 18 155/99 H 97 02/17/18 02:00 02/17/18 03:00 02/17/18 02:00 02/17/18 02:00 02/17/18 02:00 Oxygen Delivery Method Room Air Weight: 100 lb 12.02 oz Body Mass Index (BMI) 18.4 Intake and Output for Last 24 Hours 02/15/18 02/16/18 02/17/18 23:59 23:59 23:59 Intake Total 1710 / 1710 2784 / 2784 Output Total 180 / 180 Balance 1710 / 1710 2604 / 2604 Microbiology Past 72 Hours 02/12/18 15:00 Gram Stain - Final Aspirate - Other Wound Culture - Preliminary Streptococcus vestibularis Streptococcus parasanguinis Anaerobic Culture - Final No anaerobic bacteria isolated. Laboratory Tests Past 24 Hrs 02/16/18 02/16/18 02/16/18 05:15 05:15 05:15 WBC 12.4 H RBC 3.80 L Hgb 11.8 L Hct 33.9 L MCV 89.2 MCH 31.1 MCHC 34.8 RDW 14.6 RDW Differential 46.8 H Plt Count 232 MPV 11.8 Immature Gran % (Auto) 0.700 Neut % (Auto) 81.7 H Lymph % (Auto) 7.6 L [place] % (Auto) 9.7 Eos % (Auto) 0.2 Baso % (Auto) 0.1 Absolute Neuts (auto) 10.2 H Absolute Lymphs (auto) 0.94 Total Counted Not Reportable Sodium 137 Potassium 3.3 L Chloride 100 Carbon Dioxide 21.0 Anion Gap 16 H BUN 8 Creatinine 0.59 Estim Creat Clear Calc 76.81 Est GFR (MDRD) Af Amer 136 Est GFR (MDRD) Non-Af 112 BUN/Creatinine Ratio 13.6 Glucose 78 Calcium 8.9 Magnesium 1.5 L MRSA (PCR) 02/16/18 02/17/18 02/17/18 11:20 04:25 04:25 WBC 10.0 RBC 3.56 L Hgb 11.0 L Hct 31.6 L MCV 88.8 MCH 30.9 MCHC 34.8 RDW 14.3 RDW Differential 45.3 H Plt Count 220 MPV 10.8 Immature Gran % (Auto) Neut % (Auto) Lymph % (Auto) [place] % (Auto) Eos % (Auto) Baso % (Auto) Absolute Neuts (auto) Absolute Lymphs (auto) Total Counted Sodium 138 Potassium 3.0 L Chloride 100 Carbon Dioxide 29.0 Anion Gap 9 BUN 13 Creatinine 0.67 Estim Creat Clear Calc 67.64 Est GFR (MDRD) Af Amer 118 Est GFR (MDRD) Non-Af 97 BUN/Creatinine Ratio 19.5 Glucose 133 H Calcium 8.3 L Magnesium MRSA (PCR) Negative Medical Necessity - Tobacco Use Smoking Status: Current every day smoker Tobacco Use: Cigarettes Assessment/Plan All Active Problems Adverse effect of ibuprofen (Acute) RAFA (acute kidney injury) (Acute) Duodenal ulcer perforation (Acute) Still distended but less tense Will restart clears Leukocytosis resolved Needs to mobilize more Still hypokalemic
[2018-02-17] MEDS: Piperacil/Tazobactam 3.375 GM/50 ML ML IV ×3 (05:28→22:48)
[2018-02-17] MEDS: amLODIPine 10 MG Tablet PO (09:20)
[2018-02-17 10:34] LABS: Magnesium 2.2 mg/dL (1.6-2.6)
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
[2018-02-17] MEDS: Acetaminophen 325 MG Tablet PO (23:10)
[2018-02-18 03:47] VITALS: BP 143/90; PULSE 79; RESP 16; TEMP 36.6; O2SAT 100
--- NOTE | 2018-02-18 05:52 | PCM.PN.SRG ---
Patient Problems: Active and Suspected Problems Adverse effect of ibuprofen (Acute) RAFA (acute kidney injury) (Acute) Duodenal ulcer perforation (Acute) Subjective: No nausea, no pain, no fever, poor oral intake but likely this is in part chronic - Physical Exam Abdomen: Bowel Sounds Present, Soft, Non Tender Vital Signs Temp Pulse Resp BP Pulse Ox 97.8 F 79 16 143/90 H 100 02/18/18 03:47 02/18/18 03:47 02/18/18 03:47 02/18/18 03:47 02/18/18 03:47 Oxygen Delivery Method Room Air Weight: 100 lb 12.02 oz Body Mass Index (BMI) 18.4 Intake and Output for Last 24 Hours 02/16/18 02/17/18 02/18/18 23:59 23:59 23:59 Intake Total 2784 / 2784 2146 / 2146 1300 / 1300 Output Total 180 / 180 Balance 2604 / 2604 2146 / 2146 1300 / 1300 Microbiology Past 72 Hours 02/12/18 15:00 Gram Stain - Final Aspirate - Other Wound Culture - Final Streptococcus vestibularis Streptococcus parasanguinis Anaerobic Culture - Final No anaerobic bacteria isolated. Laboratory Tests Past 24 Hrs 02/17/18 04:25 Magnesium 2.2 Medical Necessity - Tobacco Use Smoking Status: Current every day smoker Tobacco Use: Cigarettes Assessment/Plan All Active Problems Adverse effect of ibuprofen (Acute) RAFA (acute kidney injury) (Acute) Duodenal ulcer perforation (Acute) Ready for DC today Will need omeprazole as ordered Will need nutritional supplements 3 days of oral Ab I anticipate a strong recovery check potassium for possible ongoing replacement
[2018-02-18] MEDS: Piperacil/Tazobactam 3.375 GM/50 ML ML IV (06:02)
[2018-02-18 06:37] LABS: Hematocrit 31.9 % (37-47); Hemoglobin 10.8 g/dl (12.0-15.0); Mean Corp Hgb Conc 33.9 g/gl (32-36); Mean Corpuscular Hgb 30.3 pg (27.0-32.0); Mean Corpuscular Volume 89.6 fL (81-99); Mean Platelet Vol. 10.7 fl (6.2-12.0); Platelet Count 233 K/mm3 (150-450); RBC Distribution Width CV 14.9 % (11.6-14.6); RBC Distribution Width SD 49.1 fl (35.1-43.9); Red Blood Count 3.56 M/mm3 (4.2-5.4); White Blood Count 8.5 K/mm3 (4.4-11.0)
[2018-02-18 06:38] LABS: Scan Indicated on CBC? Y/N NO
[2018-02-18 06:48] LABS: Anion Gap 8 (5-15); BUN 16 mg/dL (7-18); BUN/Creat Ratio 25.6 RATIO (10-20); Calcium,Total 8.2 mg/dL (8.5-10.1); Chloride 105 mmol/L (98-107); Creatinine, Serum 0.62 mg/dL (0.55-1.02); EST Glomerular Filtration Rate 105 mL/min (>60); Est Glom Filt Rate - Afr Amer 127 mL/min (>60); Glucose 131 mg/dL (74-106); Potassium 3.8 mmol/L (3.5-5.1); Sodium Level 138 mmol/L (136-145)
[2018-02-18 07:39] VITALS: BP 148/90; PULSE 76; RESP 18; TEMP 36.8; O2SAT 100
[2018-02-18] MEDS: amLODIPine 10 MG Tablet PO (07:42)
[2018-02-18] MEDS: Pantoprazole Sodium 40 MG Tablet PO (09:20)
--- NOTE | 2018-02-18 09:48 | PCM.WORK.EX ---
Work/School Excuse Work/School Excuse for:: Patient Please excuse this person from:: Work From: 02/12/18 through: 02/25/18
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
--- NOTE | 2018-02-18 10:44 | NURSING ---
picc discontinued. pressure held 15minutes, no drainage noted. per policy patroleum jelly dressing, covered by dry dressing. pt educated on laying flat for additional time. pt also educated on when to remove dressing and signs/symptoms to report.
[2018-02-18] MEDS: 0.9% NaCl Peripheral Flush Adult/Peds IV (10:46)
== END 2018-02-18 11:16 | disposition home or self-care (01) | DRG 148 ==
LOC: ED 02-12 01:52 → PCU 02-12 02:02 → MS3 02-17 14:13
PROVIDERS: Nurse Practitioner Family; Surgery; Admitting Provider Family Medicine; Emergency Provider Emergency Medicine; Visit Provider Internal Medicine
PROC: 0DU947Z Supplement Duodenum with Autologous Tissue Substitute, Percutaneous Endoscopic Approach (ICD-10-PCS; CPT 49320; principal; 2018-02-12 07:15)
DX: K26.5 Chronic or unspecified duodenal ulcer with perforation (principal); N17.9 Acute kidney failure, unspecified; E43 Unspecified severe protein-calorie malnutrition; K44.9 Diaphragmatic hernia without obstruction or gangrene; Z23 Encounter for immunization; T39.315A Adverse effect of propionic acid derivatives, initial encounter; I10 Essential (primary) hypertension; K21.9 Gastro-esophageal reflux disease without esophagitis; E87.6 Hypokalemia; E83.42 Hypomagnesemia; Z87.828 Personal history of other (healed) physical injury and trauma; F17.210 Nicotine dependence, cigarettes, uncomplicated; G43.909 Migraine, unspecified, not intractable, without status migrainosus; Z68.1 Body mass index [BMI] 19.9 or less, adult
CPT/HCPCS: 36415; 36569; 71045; 74176; 74246; 80048; 80053; 80307; 81001; 83605; 83690; 83735; 84484; 85025; 85027; 86850; 86900; 87070; 87075; 87186; 87205; 87641; 93005; 97116; 97162; 97165; 97530; 97802; 99285; 99406; J7030; J7040; J7120; 90686; A4216; J1940; J2405; J3490

== ENCOUNTER 2018-06-12 08:02 | Day surgery (SDC) | payer MEDICAID, SELFPAY ==
[2018-06-12] VITALS (9 sets, daily range): BP systolic 148–205; BP diastolic 87–141; PULSE 61–69; RESP 16–18; TEMP 36.3–37.1; O2SAT 96–100; BMI 19.7
--- NOTE | 2018-06-12 09:15 | IMM_PTH ---
PATIENT: KISHOR BELLO LOC: EN U#:[id number] AGE/SX: 58/F ROOM: RE06/12/[address]: Dr. Rivas Jade MD : 1960 BED: DIS: 06/12/2018 SPEC #: [id number] RECD: 06/12/18 13:45 STATUS: SANDY MADDY #: [id number] JOELLE: 06/12/18 09:[address]: Rivas Jade DEPT: IMMUNOHISTOCHEMISTRY RECD BY: Rachna Otero ENTERED: 06/12/18 13:46 SP TYPE: IMMUNO OT DR: No Primary Care Phys Tissues: B - Stomach, NOS Procedures: H Pylori (initial) PHYSICIAN & INSTITUTION [place] [id number] SPECIMEN INFORMATION: Tissue Source: B - Antral biopsy Clinical Info: Duodenal ulcer perforation Specimen Number: [id number] CPT code: 34428 METHODOLOGY: Deparaffinized sections of prefer/formalin-fixed tissue or PAP/DQ stained slides are incubated with monoclonal/polyclonal antibodies/oligonucleotide probes. Localization is made via biotin free immunoperoxidase method. Appropriate controls are performed and reacted as expected. Results on target cell population are indicated in the following table: RESULTS: ANTIBODY / CLONE RESULT Block B H Pylori (polyclonal) negative These tests were developed and their performance characteristics determined by [facility]. They may not have been cleared or approved by the [place]. Food and Drug Administration. The FDA has determined that such clearance or approval is not necessary. INTERPRETATION: B. Antral biopsy: IHC with appropriate control is negative for Helicobacter organisms. CE:piedad 06/15/18
--- NOTE | 2018-06-12 09:15 | EGD_PTH ---
PATIENT: KISHOR BELLO LOC: EN U#:[id number] AGE/SX: 58/F ROOM: RE06/12/[address]: Dr. Rivas Jade MD : 1960 BED: DIS: 06/12/2018 SPEC #: [id number] RECD: 06/12/18 10:59 STATUS: SANDY MADDY #: [id number] JOELLE: 06/12/18 09:[address]: Rivas Jade DEPT: SURGICAL PATHOLOGY RECD BY: Terrell iSngh ENTERED: 06/12/18 11:29 SP TYPE: EGD BIOPSY OTHR DR: Ghazal Primary Care Phys Tissues: A - Duodenum, NOS B - Gastric mucous membrane C - Esophageal mucous membrane Procedures: Surgery Specimen Level IV HEADER OPERATION: EGD (MOD) PRE-OP DIAGNOSIS: Duodenal ulcer perforation TISSUE SUBMITTED: A - Duodenal biopsy, B - Antral biopsy for H. pylori and pathology, C - Distal esophageal biopsies MICROSCOPIC DIAGNOSIS A. Duodenal biopsy: Mild chronic duodenitis with Sara's gland hyperplasia. No ulcer identified. Villous architecture is preserved, with normal villous to crypt ratio. B. Antral biopsy for H. pylori and pathology: Reactive gastropathy. See comment. C. Distal esophageal biopsies: Squamous mucosa showing a few intraepithelial lymphocytes and mild basilar squamous hyperplasia. No glandular mucosa found. CE:piedad 06/15/18 COMMENT B. The results of immunohistochemistry for Helicobacter pylori will be reported separately ([id number]). MICROSCOPIC DESCRIPTION Slides are reviewed. GROSS DESCRIPTION A - Received in fixative is one container labeled with the patient's name and designated duodenal biopsy. The specimen consists of one irregular fragment of light marrero soft tissue that measures 0.3 x 0.2 x 0.1 cm. The specimen is totally submitted in one cassette. B - Received in fixative is one container labeled with the patient's name and designated antral biopsy. The specimen consists of one irregular fragment of light marrero soft tissue that measures 0.6 x 0.2 x 0.1 cm. The specimen is totally submitted in one cassette. C - Received in fixative is one container labeled with the patient's name and designated distal esophagus biopsy. The specimen consists of one irregular fragment of light marrero soft tissue that measures 0.2 x 0.2 x 0.1 cm. The specimen is totally submitted in one cassette. / AM:piedad 06/12/18 TC:2 CPT: 23741 x3
--- NOTE | 2018-06-12 09:30 | OP.ENDO_ITS ---
Patient Name: Tiffany Arevalo Procedure Date: 06/12/2018 9:09 AM Date of : 1960 Age: 58 Procedure: Upper GI endoscopy Indications: Follow-up of duodenal perforation Providers: Rivas Jade MD Referring MD: Rivas Jade MD Medicines: Midazolam 3 mg IV, Meperidine 75 mg IV Complications: No immediate complications. Procedure: Pre-Anesthesia Assessment: - Prior to the procedure, a History and Physical was performed, and patient medications and allergies were reviewed. The patient's tolerance of previous anesthesia was also reviewed. The risks and benefits of the procedure and the sedation options and risks were discussed with the patient. All questions were answered, and informed consent was obtained. Prior Anticoagulants: The patient has taken no previous anticoagulant or antiplatelet agents. ASA Grade Assessment: II - A patient with mild systemic disease. After reviewing the risks and benefits, the patient was deemed in satisfactory condition to undergo the procedure. After obtaining informed consent, the endoscope was passed under direct vision. Throughout the procedure, the patient's blood pressure, pulse, and oxygen saturations were monitored continuously. The gastroscope was introduced through the mouth, and advanced to the second part of duodenum. The upper GI endoscopy was accomplished without difficulty. The patient tolerated the procedure well. Moderate Sedation: Moderate (conscious) sedation was personally administered by the endoscopist. The following parameters were monitored: oxygen saturation, heart rate, blood pressure, and response to care. Total physician intraservice time was 15 minutes. Scope In: 9:19:05 AM Scope Out: 9:24:00 AM Total Procedure Duration Time 0 hours 4 minutes 55 seconds Findings: A small hiatal hernia was present. LA Grade A (one or more mucosal breaks less than 5 mm, not extending between tops of 2 mucosal folds) esophagitis was found 37 cm from the incisors. Biopsies were taken with a cold forceps for histology. Diffuse mildly erythematous mucosa without bleeding was found in the gastric antrum. Biopsies were taken with a cold forceps for histology. Diffuse mildly erythematous mucosa without active bleeding and with no stigmata of bleeding was found in the duodenal bulb. Biopsies were taken with a cold forceps for histology. Impression: - Small hiatal hernia. - LA Grade A reflux esophagitis. Biopsied. - Erythematous mucosa in the antrum. Biopsied. - Erythematous duodenopathy. Biopsied. Recommendation: - Discharge patient to home (ambulatory). - Resume previous diet. - Continue present medications. - Telephone my office for pathology results in 1 week. She is currently on omeprazole. 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 Consider H2 jasmin after pathology reviewed. Procedure Code(s): --- Professional --- 16009, Esophagogastroduodenoscopy, flexible, transoral; with biopsy, single or multiple 34619, 59, Moderate sedation services provided by the same physician or other qualified health respiratory care technician performing the diagnostic or therapeutic service that the sedation supports, requiring the presence of an independent trained observer to assist in the monitoring of the patient's level of consciousness and physiological status; initial 15 minutes of intraservice time, patient age 5 years or older Diagnosis Code(s): --- Professional --- K44.9, Diaphragmatic hernia without obstruction or gangrene K21.0, Gastro-esophageal reflux disease with esophagitis K31.89, Other diseases of stomach and duodenum K63.1, Perforation of intestine (nontraumatic) CPT copyright 2017 [employer]. All rights reserved. The codes documented in this report are preliminary and upon hydro plant site manager review may be revised to meet current compliance requirements. Rivas Jade MD 06/12/2018 9:30:25 AM This report has been signed electronically. Number of Addenda: 0 Note Initiated On: 06/12/2018 9:09 AM
== END 2018-06-12 10:30 | disposition home or self-care (01) ==
LOC: EN 08:03 → AC 08:05
PROVIDERS: Referring Provider Surgery; Visit Provider Surgery
PROC: (CPT 43239; principal; 2018-06-12 09:10)
DX: K29.80 Duodenitis without bleeding (principal); K44.9 Diaphragmatic hernia without obstruction or gangrene; K21.0 Gastro-esophageal reflux disease with esophagitis; I10 Essential (primary) hypertension; Z79.899 Other long term (current) drug therapy
CPT/HCPCS: 43239; 88305; 88342; 99152; 99153; J7120